=== PATIENT | male | born 1980 | race Caucasian/White ===

== ENCOUNTER 2018-04-10 13:25 | Inpatient (IN) | payer SELFPAY ==
[2018-04-10] MEDS ORDERED: HumaLOG 300 UNITS/3 ML VIAL SC PRN (15:08)
[2018-04-10] MEDS ORDERED: Dextrose 5% in Water 1,000 ML IV PRN (15:08)
[2018-04-10] MEDS ORDERED: Dextrose 50% Abboject 50 ML SYRINGE SLOW IVP PRN (15:08)
[2018-04-10] MEDS ORDERED: Ondansetron PF 4 MG/2 ML Vial IVP PRN (15:08)
[2018-04-10] MEDS ORDERED: Guaifenesin DM 100-10/5 ML UDCUP PO PRN (15:08)
[2018-04-10 15:51] LABS: Hemoglobin A1c 6.2 % (4.0-6.0)
[2018-04-10 16:05] LABS: Acetaminophen Less than 6.0 mcg/mL (10.0-30.0); Alcohol Less than 10 mg/dL (Less than 10); Salicylate Less than 8.0 mg/dL (15.0-30.0)
--- NOTE | 2018-04-10 16:40 | ULT ---
RIGHT UPPER QUADRANT ULTRASOUND 04/10/18 INDICATION: Cirrhosis. FINDINGS: Diffuse increased echogenicity throughout the hepatic parenchyma is present limiting acoustic penetra tion. There is moderate distention of the gallbladder without evidence of gallbladder wall thickening , There is mild increased intraluminal echogenicity indicating sludge/gravel-like cholelithiasis. A t race degree of decreased echogenicity about the gallbladder could relate to fatty sparring versus min imal pericholecystic edema. Common duct is not reliably visualized for comment. IMPRESSION: 1. Diffuse increased echogenicity of the liver which decreases acoustic penetration and limits e valuation. This could relate to hepatic steatosis and/or hepatocellular disease. Correlate with labor atory values. 2. Sludge/cholelithiasis of the gallbladder. Minimal decreased echogenicity about the periphery of the gallbladder may relate to fatty sparring versus trace pericholecystic edema. There is no evide nce of abnormal gallbladder wall thickening. Recommend clinical correlation to exclude evidence of de veloping cholecystitis. 3. Nonvisualization of the common duct. POS: RAMIRO
[2018-04-10 16:58] LABS: Bilirubin Negative (Negative); Blood, Urine Negative (Negative); Clarity CLOUDY (Clear); Glucose, Urine (Dipstick) Negative (Negative); Leukocyte Negative (Negative); Nitrite Negative (Negative); Protein, Urine (Dipstick) Trace mg/dL (Neg-Trace); Urobilinogen 0.2 mg/dL (0.2-1.0); pH, Urine 5.5 (5.0-9.0)
[2018-04-10 17:00] LABS: Specific Gravity, Urine Greater than 1.060 (1.002-1.036)
[2018-04-10] MEDS: Sodium Chloride 0.9% 1,000 ML IV SCH (17:09)
[2018-04-10] MEDS: Morphine 2 MG/ML SYRINGE SLOW IVP PRN ×2 (17:21→20:18)
[2018-04-10 18:10] LABS: Amphetamine Not Detected (NotDetected); Barbiturates Screen Not Detected (NotDetected); Benzodiazepine Screen Not Detected (NotDetected); Cocaine Metabolite Screen Not Detected (NotDetected); Medtox Control Line Valid? VALID (VALID); Medtox Reader # READER 1; Methadone Not Detected (NotDetected); Methamphetamine Not Detected (NotDetected); Opiate Screen Detected (NotDetected); Oxycodone Screen Not Detected (NotDetected); Phencyclidine (PCP) Not Detected (NotDetected); THC/Cannabinoid Screen Not Detected (NotDetected); Tricyclic Screen Not Detected (NotDetected)
[2018-04-10] MEDS: metroNIDAZOLE 500 MG in Premix Bag 1 BAG IVPB SCH (19:21)
[2018-04-10 19:39] VITALS: BMI 41.8
[2018-04-10] MEDS: Famotidine 20 MG TAB PO SCH (20:18)
[2018-04-11] MEDS: Morphine 2 MG/ML SYRINGE SLOW IVP PRN (00:19)
[2018-04-11] MEDS: metroNIDAZOLE 500 MG in Premix Bag 1 BAG IVPB SCH ×3 (00:20→17:51)
--- NOTE | 2018-04-11 02:32 | CON ---
DATE OF CONSULTATION: 04/10/2018 REASON FOR CONSULTATION: Abdominal pain. HISTORY OF PRESENT ILLNESS: Mr. Hernandez is a 37-year-old man, who is without any previous medical issue, transferred from [facility] to this facility for abdominal pain. His symptoms started 5 days ago when he developed frequent watery loose diarrhea without any blood or mucus. This lasted for approximately a day and a half and resolved. However, two days ago, he developed severe mid periumbilical abdominal pain without radiation. Pain came in waves, rated at 10/10, which doubled him over. The pain has waxed and waned. Concurrently, his umbilical hernia that has been present for the last 3 years became much bigger and very red. He did not have any nausea or vomiting. Thinking that there was constipation, he took a dose of MiraLAX, which did result in a loose bowel. However, the pain persisted. The umbilical hernia remained very large and red until this morning when there is a reduction in size, but not to the baseline. He reports having had umbilical hernia for the last 3 years, but it has become much big over the last 6 months. The patient attributed the umbilical hernia with the heavy lifting. He never did have any blunt trauma, injury, or any surgery to his abdomen. Currently, other than the pain, he feels fine. He does not have any nausea or vomiting. He no longer has any diarrhea. PAST MEDICAL HISTORY: Essentially healthy without any previous medical illness or surgery. ALLERGIES: NONE. MEDICATIONS: No prescription medications at home. SOCIAL HISTORY: The patient is single. He works in construction. He smokes half a pack a day. Infrequent alcohol consumption. No illicit drug use. FAMILY HISTORY: Negative for any known GI problem, liver disease, or GI malignancy. REVIEW OF SYSTEMS: A 10-point review of systems did not show any other pertinent positives or negatives. PHYSICAL EXAMINATION: VITAL SIGNS: Temperature 98.6, blood pressure 116/80, and pulse of 100. GENERAL: He is alert, conversant, sitting up, in no distress. HEENT: Shows anicteric sclerae. Oropharynx clear. NECK: Supple. CV: Shows normal S1 and S2. Regular rate and rhythm. Slight tachycardia. CHEST: Shows normal breath sounds. ABDOMEN: Very protuberant. There is an 8 cm umbilical hernia that is not completely reducible. There is no surrounding erythema. He does have active bowel sounds. EXTREMITIES: Show no edema. LABORATORY DATA: Sodium 139, potassium 4.3, chloride 103, CO2 of 25, creatinine 0.8, BUN of 10. Bilirubin 0.5, alkaline phosphatase 77, AST 27, ALT 45, lipase of 15. WBC 7.8, hemoglobin 16.2, and platelet count of 257. CT in [place] of the abdomen and pelvis showed by report mural thickening involving loops of small bowel without any evidence of an obstruction. There is a fat umbilical hernia and a small amount of free fluid. There is fatty infiltration of the liver. Otherwise, no other inflammatory changes or significant finding. Right upper quadrant ultrasound performed here showed fatty liver, distended gallbladder with sludge without any mural thickening. ASSESSMENT: The patient with resolved diarrhea, now presents with 2-day history of persistent periumbilical pain, associated with much enlarged umbilical hernia by history. Hernia is now smaller per the patient. A CT scan showed mural thickening of several small loops of bowel. I suspect he may have had partial incarceration of small bowel two days ago that has resolved by the time of CT in [place] this morning. I doubt that he has any inflammatory bowel disease such as Crohn's enteritis. Clinical symptoms are not compatible with any infectious enterocolitis. He does not have fever or leukocytosis. At this point, there is no evidence of ischemic bowel. I do not have the actual CT scan from [place] for further review. RECOMMENDATIONS: 1. Surgery consult. 2. Continue with empiric Cipro/metronidazole. 3. No other diagnostic test from GI standpoint. 4. We will follow. Job ID: [id number]
[2018-04-11] MEDS: Acetaminophen 325 MG TAB PO PRN ×2 (03:36→20:43)
--- NOTE | 2018-04-11 03:38 | CON ---
DATE OF CONSULTATION: 04/10/2018 HISTORY OF PRESENT ILLNESS: A 37-year-old morbidly obese man was evaluated in [place] [facility]. The patient presented complaining of severe low abdominal pain, which was described as crampy since 3 days ago. The pain was preceded by multiple loose bowel movements, which continued up until yesterday. The patient denies any fevers or chills. He reports runny nose and cough over the last 2 weeks. He denies any hematochezia or melena. PAST MEDICAL HISTORY: Significant for umbilical hernia, which has been present over the last 3 to 4 years and has not changed in size or appearance. Other pertinent medical history includes morbid obesity and asthma. PAST SURGICAL HISTORY: The patient denies any previous surgeries. SOCIAL HISTORY: The patient reports drinking about 5 beers every other day. He also smokes half a pack of cigarette per day and trying to quit smoking. He does have approximately a 20-pack cigarette smoking history. He denies any illicit drug abuse. FAMILY HISTORY: Significant for chronic alcoholism in his late father. He denies any family history of inflammatory bowel disease, cancer, or coronary artery disease. MEDICATIONS: Prehospitalization medication, none. ALLERGIES: THE PATIENT DENIES ANY KNOWN DRUG ALLERGIES. REVIEW OF SYSTEMS: A 10-point review of systems is essentially unremarkable except for as stated in past medical history and chief complaint. PHYSICAL EXAMINATION: GENERAL: This reveals a 37-year-old morbidly obese man, who is otherwise coherent, interactive, and appears stated age. The patient is alert and oriented x3, appears to be in no acute distress at the time of my evaluation. He now rates his pain 2 to 3 out of 10. VITAL SIGNS: Include blood pressure 128/101, pulse is 96, respiratory rate is 18, temperature 97.7 degrees Farenheit, and oxygen saturation 94% on room air. HEENT: Appears normocephalic and atraumatic. Pupils are equally round and reactive to light and accommodation. Extraocular muscles are intact bilaterally. He has no scleral icterus present. Oral mucosa is pink and moist. No lesions are noted. NECK: Supple. No palpable lymphadenopathy or thyromegaly present. HEART: Reveals regular rate and rhythm. No murmurs or gallops auscultated. LUNGS: Clear to auscultation bilaterally. Breathing regular and unlabored. ABDOMEN: Soft and morbidly obese. He has [id number] tenderness to palpation with no gross rebound tenderness present. He has a large umbilical hernia defect with a nonreducible sac. Bowel sounds in all four quadrants appear normoactive. Liver and spleen not palpable below costal margin. EXTREMITIES: Reveal 2+ radial and pedal pulses bilaterally. Ankle edema is present. NEUROLOGIC: Reveals no focal deficits present. IMAGING STUDIES: I have personally reviewed CT scan of the abdomen and pelvis obtained in [place], which reveals multiple loops of thick-walled distal small bowel with a small amount of free fluid. There is significant amount of omental fat. There is a large umbilical hernia, which contains fat, but no bowel. There is fatty infiltration of the liver. There is no pneumoperitoneum or pneumatosis intestinalis. I have also reviewed the abdominal ultrasound, which is pertinent for intraluminal biliary sludge, no gallstones. There is no gallbladder wall thickening or pericholecystic fluid present. IMPRESSION: 1. Resolving abdominal pain, likely secondary to acute viral enteritis. 2. Chronic umbilical hernia with incarcerated fat. The umbilical hernia itself is asymptomatic. 3. Biliary sludge. 4. Morbid obesity. RECOMMENDATIONS: Continue with clear liquid diet and advance diet as tolerated, especially if abdominal pain is resolving. There is no acute surgical indication for this patient at this time. An elective umbilical herniorrhaphy could be pursued once the patient has been able to loose at least 50 to 75 pounds. This could be arranged through [facility]. The above findings and plan have been discussed with the patient, who indicates understanding of the information given. We answered his questions. Thank you again, Dr. Doyle, for allowing me the opportunity to participate in the care of this patient. Job ID: [id number]
[2018-04-11 04:51] LABS: #Eosinphils 0.1 thou/uL (0.0-0.7); #Lymphocytes 1.1 thou/uL (1.20-3.40); #Monocytes 0.6 thou/uL (0.11-0.59); #Neutrophils 5.1 thou/uL (1.40-6.50); %Basophils 0.5 % (0.0-1.0); %Lymphocytes 16.3 % (21.0-51.0); %Monocytes 8.1 % (0.0-10.0); %Neutrophils 73.1 % (42.0-75.0); Hemoglobin 14.7 g/dL (14.0-18.0); Mean Corpuscular HGB CONC 34.3 g/dL (32.0-36.0); Mean Corpuscular Hemoglobin 32.3 pg (27.0-31.0); Mean Corpuscular Volume 94.2 fL (78.0-98.0); Mean Platelet Volume 7.5 fL (7.4-10.4); Platelet Count 269 thou/uL (130-400); RBC Distribution Width 12.3 % (11.5-14.5); Red Blood Cell (RBC) Count 4.56 mill/uL (4.70-6.10)
[2018-04-11 04:59] LABS: Anion Gap 11 mmol/L (10-20); BUN (Urea Nitrogen) 9 mg/dL (8.9-20.6); Calc. Creatinine Clearance 217 mL/min (70-130); Calcium 8.3 mg/dL (7.8-10.44); Carbon Dioxide 24 mmol/L (22-29); Cardiac Risk 7.4 (Less than 4.5); Chloride 106 mmol/L (98-107); Cholesterol 147 mg/dl (< 200 Desired); Estimated GFR-MDRD Greater than 90; Glucose 149 mg/dL (70-105); HDL Cholesterol 20 mg/dL (>60 Neg Risk); LDL Cholesterol, Calculated 61 mg/dL; Sodium 137 mmol/L (136-145); Triglycerides 329 mg/dL (Less than 150)
[2018-04-11] MEDS: Sodium Chloride 0.9% 1,000 ML IV SCH (05:26)
[2018-04-11] MEDS ORDERED: CEFAZOLIN 2 GM/50 ML BAG IVPB SCH (09:00)
[2018-04-11] MEDS: Enoxaparin Sodium 40 MG/0.4 ML SYRINGE SC SCH (09:03)
[2018-04-11] MEDS: Famotidine 20 MG TAB PO SCH ×2 (09:03→20:43)
--- NOTE | 2018-04-11 10:56 | PRG ---
DATE OF SERVICE: 04/11/2018 SUBJECTIVE: This morning on rounds, I saw the patient, he reports some discomfort in his umbilical hernia. No nausea or vomiting. He had a CT scan of the abdomen that showed that this hernia is fat containing, but no bowel loops, although there was some evidence of enteritis. OBJECTIVE: VITAL SIGNS: His temperature is 97.7, pulse is 95, and blood pressure 159/104. GENERAL: He is awake and alert, in no apparent distress. HEENT: Unremarkable. LUNGS: Clear. HEART: Regular rate and rhythm. ABDOMEN: Obese. Distended. He has about an 8 cm x 8 cm multilobular incarcerated umbilical hernia with overlying skin edema and erythema consistent with incarceration. It is not reducible and it is mildly tender. ASSESSMENT: Incarcerated umbilical hernia. PLAN: Repair today. Hold Lovebubbax. I have discussed the procedure with him as well as the risk of bleeding, infection, high risk of recurrence, possible need to open his abdomen further to inspect bowel. He understands and gives informed consent. Job ID: [id number]
--- NOTE | 2018-04-11 11:13 | PDOC.PN ---
- Subjective Encounter Start Date: 04/11/18 Encounter Start Time: 10:00 Subjective: abd pain slightly better but its still there -: no nausea -: had 2 semisolid bm - Objective Resuscitation Status - Order Detail: 04/10/18 15:03 Resuscitation Status Routine Resuscitation Status: FULL: Full Resuscitation MAR Reviewed: Yes Vital Signs & Weight: Vital Signs (12 hours) Temp Pulse Resp BP Pulse Ox 04/11/18 08:00 94 L 04/11/18 07:05 97.7 F 95 22 H 133/90 94 L 04/11/18 04:00 98.1 F 94 18 140/98 H 93 L 04/11/18 00:00 97.6 F 95 20 143/90 H 94 L Weight Weight 251 lb 4.8 oz I&O: 04/10/18 04/11/18 04/12/18 06:59 06:59 06:59 Intake Total 1053 Balance 1053 Result Diagrams: 04/11/18 03:52 04/11/18 03:52 Additional Labs: Accuchecks 04/11/18 04/10/18 05:36 21:18 POC Glucose 151 H 173 H Phys Exam - Physical Examination HEENT: PERRLA, moist MMs Neck: no JVD, supple Respiratory: no wheezing, no rales Cardiovascular: RRR, no significant murmur Gastrointestinal: soft, positive bowel sounds has erythema over u.hernia area, tenderness+ Musculoskeletal: pulses present, edema present Neurological: non-focal, moves all 4 limbs Psychiatric: normal affect, A&O x 3 Dx/Plan (1) Enteritis Code(s): K52.9 - NONINFECTIVE GASTROENTERITIS AND COLITIS, UNSPECIFIED Status : Suspected (2) Umbilical hernia, incarcerated Code(s): K42.0 - UMBILICAL HERNIA WITH OBSTRUCTION, WITHOUT GANGRENE Status: Suspected (3) Hypertriglyceridemia Code(s): E78.1 - PURE HYPERGLYCERIDEMIA Status: Acute (4) Obesity Code(s): E66.9 - OBESITY, UNSPECIFIED Status: Chronic Qualifiers: Obesity classification: adult class 3 (BMI >= 40) Body mass index: BMI 40.0 -44.9 (5) Fatty liver Code(s): K76.0 - FATTY (CHANGE OF) LIVER, NOT ELSEWHERE CLASSIFIED Status: Acute (6) H/O extrinsic asthma Code(s): Z87.09 - PERSONAL HISTORY OF OTHER DISEASES OF THE RESPIRATORY SYSTEM Status: Chronic (7) Tobacco abuse Code(s): Z72.0 - TOBACCO USE Status: Chronic - Plan is npo for surgery today for incarcerated u.hernia -: will add tricor after procedure -: is prediabetic with HbA1c of 6.2 -: counselled regarding healthy eating/exercises to lose weight -: on cipro, flagyl, iv fluids, morphine prn * . Review of Systems - Medications/Allergies Allergies/Adverse Reactions: Allergies Allergy/AdvReac Type Severity Reaction Status Date / Time Sulfa (Sulfonamide Allergy Verified 04/10/18 16:05 Antibiotics) Medications: Current Medications Acetaminophen (Tylenol) 650 mg PO Q4H PRN PRN Reason: Headache/Fever/Mild Pain (1-3) Last Admin: 04/11/18 03:36 Dose: 650 mg Cefazolin Sodium/Dextrose (Ancef 2 Gm/50 Ml) 2 gm IVPB ONCALL-OR GONZALO Stop: 04/11/18 17:00 Dextrose/Water (Dextrose 50%) 25 gm SLOW IVP PRN PRN PRN Reason: Hypoglycemia Enoxaparin Sodium (Lovenox) 40 mg SC 0900 [facility] Last Admin: 04/11/18 09:03 Dose: Not Given Famotidine (Pepcid) 20 mg PO BID [facility] Last Admin: 04/11/18 09:03 Dose: Not Given Glucagon (Glucagon) 1 mg IM PRN PRN PRN Reason: Hypoglycemia Guaifenesin/Dextromethorphan (Robitussin Dm) 15 ml PO Q4H PRN PRN Reason: Cough Ciprofloxacin/Dextrose 400 mg/ (Device) 200 mls @ 200 mls/hr IVPB 0500,1700 [facility] Last Admin: 04/11/18 05:26 Dose: 200 mls Dextrose/Water (D5w) 1,000 mls @ 0 mls/hr IV .Q0M PRN PRN Reason: Hypoglycemia Metronidazole 500 mg/ Device 100 mls @ 100 mls/hr IVPB 0200,1000,1800 [facility] Last Admin: 04/11/18 09:47 Dose: 100 mls Sodium Chloride (Normal Saline 0.9%) 1,000 mls @ 70 mls/hr IV .[id number] [facility] Stop: 04/11/18 19:49 Last Admin: 04/11/18 05:26 Dose: Not Given Insulin Human Lispro (Humalog) 0 units SC .MILD SLIDING SCALE PRN PRN Reason: Mild Correctional Scale Morphine Sulfate (Morphine) 2 mg SLOW IVP Q4H PRN PRN Reason: Chest Pain/BP Elevations Last Admin: 04/11/18 00:19 Dose: 2 mg Ondansetron HCl (Zofran) 4 mg IVP Q6H PRN PRN Reason: Nausea/Vomiting
[2018-04-11] MEDS ORDERED: Morphine 2 MG/ML SYRINGE ONE (11:20)
[2018-04-11] MEDS ORDERED: PROPOFOL 200 MG/20 ML VIAL ONE (11:34)
[2018-04-11] MEDS ORDERED: Glycopyrrolate 0.2 MG/ML 5 ML SYRINGE ONE (11:34)
[2018-04-11] MEDS ORDERED: Succinylcholine Chloride 20 MG/ML 10 ml SYRINGE FS ONE (11:34)
[2018-04-11] MEDS ORDERED: Ondansetron PF 4 MG/2 ML Vial ONE (11:34)
[2018-04-11] MEDS ORDERED: Lidocaine 1% PF 5 ML VIAL ONE (11:34)
--- NOTE | 2018-04-11 11:52 | PRG ---
DATE OF SERVICE: 04/11/2018 SUBJECTIVE: The patient reports improved abdominal pain though it has continued. Denies fevers or chills and has no other complaints at this time. No shortness of breath. No chest pain. Continued but improved abdominal pain. OBJECTIVE: VITAL SIGNS: Blood pressure 133/90, pulse 95, respirations 22, O2 saturations 94% on room air, and temperature 97.7. GENERAL: Alert and oriented. No acute distress. HEENT: EOMI. Moist mucosal membranes. NECK: Trachea midline. Soft. CARDIOVASCULAR: Regular rate and rhythm. No murmurs. PULMONARY: Clear to auscultation bilaterally. Equal chest rise. ABDOMEN: Umbilical herniation with erythema on overlying skin. Nonreducible sac. Nontender to palpation. EXTREMITIES: Equal pulses bilaterally. NEUROLOGIC: No focal deficits. LABORATORY DATA: White blood cell count 7, hemoglobin 14.7, hematocrit 43, and platelet 269. Sodium 137, potassium 4, BUN 9, creatinine 0.76, and glucose 149. IMPRESSION: 1. Resolving abdominal pain likely secondary to acute viral enteritis. 2. Chronic umbilical hernia with incarcerated fat. 3. Biliary sludge. 4. Morbid obesity. RECOMMENDATIONS: Gastroenterology has been consulted on this patient. We will follow up with their recommendations for enteritis. For umbilical hernia, we will keep the patient n.p.o. today for possibility of doing an umbilical herniation repair for concern of necrosing fat and overlying skin above herniation. This patient was seen and evaluated by Dr. Warren on morning rounds. The plan of care was discussed with the patient, who verbalized understanding and was in agreement. Job ID: [id number]
--- NOTE | 2018-04-11 12:03 | HP ---
REASON FOR ADMISSION: Acute enteritis, possibly ischemic enteritis. HISTORY OF PRESENT ILLNESS: The patient gives history of having diarrhea, two episodes on Sunday night. The patient did not have any bowel movements on Sunday or Sunday, but then his abdominal pain was slowly getting worse. The pain was more in the lower quadrants, both. This got worse this morning with colicky 10/10 in intensity pain. The patient had a semisolid stool this morning. No fever. He gives history of his daughter having had fever, nausea and vomiting. She got better and went back to school from this morning. The patient thought he had viral fever until yesterday. He has not had any further diarrhea after the Sunday episode. The patient went to [facility] from where he was transferred here. PAST MEDICAL AND SURGICAL HISTORY: History of umbilical hernia from last 3 years which has been progressively growing bigger, history of asthma which is mild, intermittent. No prior surgical history. CURRENT MEDICATIONS: None. ALLERGIES: ALLERGIC TO SULFA. PERSONAL HISTORY: Drinks alcohol on occasion, smokes half pack a day. Does not abuse drugs. FAMILY HISTORY: Mother of overdose at the age of 57 years. Father at the age of 71 years, he has had a history of end stage renal disease and diabetes. CODE STATUS: Full. This was discussed with patient at bedside. REVIEW OF SYSTEMS: REVIEW OF SYSTEMS: The following complete review of systems was negative, unless otherwise mentioned in the HPI or below: Constitutional: Weight loss or gain, ability to conduct usual activities. Skin: Rash, itching. Eyes: Double vision, pain. ENT/Mouth: Nose bleeding, neck stiffness, pain, tenderness. Cardiovascular: Palpitations, dyspnea on exertion, orthopnea. Respiratory: Shortness of breath, wheezing, cough, hemoptysis,fever or night sweats. Gastrointestinal: Poor appetite, abdominal pain, heartburn, nausea, vomiting, constipation, or diarrhea. Genitourinary: Urgency, frequency, dysuria, nocturia. Musculoskeletal: Pain, swelling. Neurologic/Psychiatric: Anxiety, depression. Allergy/Immunologic: Skin rash, bleeding tendency. PHYSICAL EXAMINATION: GENERAL: The patient is a 37-year-old male who is currently not in any acute distress. VITAL SIGNS: Blood pressure 128/100, pulse 96 per minute, respiratory rate 18 per minute, temperature 97.8 degrees Fahrenheit, saturating 96% on room air. NECK: Supple. No elevated JVD. EYES: Extraocular muscles intact. Pupils reacting to light. Oral cavity, mucous membranes are moist. No exudates. CARDIOVASCULAR: S1, S2 heard, regular rhythm. RESPIRATORY: Air entry 1+ bilateral, scattered rhonchi plus no wheezes. ABDOMEN: Soft. The patient has a big umbilical hernia, has tenderness in the lower quadrants. No rigidity or guarding. EXTREMITIES: No peripheral edema or calf tenderness. VASCULAR: Peripheral pulses 2+ bilateral. No ischemic ulcerations or gangrenes. CENTRAL NERVOUS SYSTEM: No gross focal deficits noted. The patient is alert, awake, oriented well. PSYCHIATRIC: The patient's mood is euthymic. No hallucinations or delusions. LABORATORY DATA: Please note all his labs were done in [place] [facility], had a white count of 7, H and H 16 and 46, platelet count 257, MCV is 90. Electrolytes are stable, BUN 10, creatinine 0.8, serum glucose was 160. Alkaline phosphatase is 77, AST 27, ALT 45, albumin 4.1, amylase 31, lipase 15, lactic acid 1.5. CT of the abdomen done showed mural thickening with loops of small bowel suggestive of enteritis with fat containing umbilical hernia. Fatty liver was seen. CLINICAL IMPRESSION AND PLAN: The patient will be admitted to medical floor for acute enteritis, possible ischemic enteritis. We will obtain a urine drug screen. The patient denies substance abuse. He will be on Cipro, Flagyl and normal saline at 70 mL per hour. We will obtain Gastroenterology consultation with Dr. Mcneil. Stool cultures will be obtained if he can provide one. He will be on full liquid diet for now. The patient will also be on morphine p.r.n. for pain. We will obtain a HbA1c level in view of serum sugars of 160 at [place]. We will continue to closely monitor him on medical floor. Job ID: [id number] [facility]
[2018-04-11] MEDS ORDERED: CEFAZOLIN 2 GM/50 ML BAG ONE (12:39)
[2018-04-11] MEDS ORDERED: Bupivacaine HCl 0.5%/Epinephrine 1:200,000/PF 30 ml Vial ONE (13:50)
[2018-04-11] MEDS ORDERED: Fentanyl 100 MCG/2 ML VIAL ONE ×3 (13:55→16:32)
[2018-04-11] MEDS ORDERED: Dextrose 50% Abboject 50 ML SYRINGE SLOW IVP PRN (15:38)
[2018-04-11] MEDS ORDERED: hydrALAZINE 20 MG/ML VIAL SLOW IVP PRN (15:38)
[2018-04-11] MEDS ORDERED: Mag-Al 1200 mg/1200 mg/30 ML UDCUP PO PRN (15:38)
[2018-04-11] MEDS ORDERED: Ondansetron PF 4 MG/2 ML Vial IVP PRN (15:38)
[2018-04-11] MEDS ORDERED: Promethazine HCl 25 MG/ML VIAL IM PRN ×2 (15:38→15:46)
[2018-04-11] MEDS ORDERED: HYDROcodone/Acetaminophen 10/325 mg Tablet PO PRN ×2 (15:38)
[2018-04-11] MEDS ORDERED: Dextrose 5% in Water 1,000 ML IV PRN (15:38)
[2018-04-11] MEDS ORDERED: Calcium Carbonate 500 MG ChewTAB PO PRN (15:38)
[2018-04-11] MEDS ORDERED: Ondansetron HCl/PF 4 MG/2 ML Vial IVP PRN (15:46)
[2018-04-11] MEDS ORDERED: Morphine 2 MG/ML SYRINGE SLOW IVP PRN ×2 (15:46)
[2018-04-11] MEDS ORDERED: Promethazine HCl 25 MG/ML VIAL SLOW IVP PRN (15:46)
[2018-04-11] MEDS: Ketorolac Tromethamine 30 MG/ML VIAL IVP SCH ×2 (17:52→23:54)
[2018-04-11] MEDS: Famotidine/PF 20 mg/2ml Vial SLOW IVP SCH (20:36)
[2018-04-11] MEDS: Docusate 100 MG CAP PO SCH (20:36)
--- NOTE | 2018-04-11 23:12 | OP ---
DATE OF PROCEDURE: 04/11/2018 PREOPERATIVE DIAGNOSIS: Strangulated umbilical hernia. PROCEDURE PERFORMED: Open ventral hernia repair with mesh, excision of 8 cm incarcerated omentum. INDICATIONS FOR PROCEDURE: This is a 37-year-old male, who presented with abdominal pain, a CT scan showing ventral hernia that contained fatty tissue. He developed increasing skin edema, erythema and tenderness consistent with compromised tissue. FINDINGS: He had an obviously incarcerated multilobular umbilical hernia that contained about 8 cm of incarcerated omentum. The actual defect was only 2.5 cm. A 15 cm piece of mesh was used, circular mesh. DESCRIPTION OF PROCEDURE: After informed consent was obtained, the patient was taken to the operating room, given general endotracheal anesthesia, placed in supine position, and abdomen was prepped and draped in usual fashion. A midline incision just lateral to the left of this wound, kind of a curvilinear lateral incision, was performed. Subcu divided sharply, very hemorrhagic. Then, I was able to separate skin from hernia sac and just carefully continued to separate the skin from the hernia sac circumferentially. There were some branch pockets that were found. These were taken down. Eventually went all the way down to the fascia. The hernia sac was then from the fascia circumferentially and opened. The omentum was divided between clamps and tied with 2-0 Vicryl ties. Hemostasis assured and the omentum was resected, sent to Pathology for further analysis. The stump was then reduced. A 15 cm round mesh was it was inserted intraabdominally. Then, it was tacked through the anterior abdominal wall circumferentially. Then, it was sutured to the abdominal wall with interrupted 0 Ethibond sutures. A 10-Estonian drain was placed and brought out through a separate stab wound. After the wound was thoroughly irrigated, hemostasis was assured. The subcu was approximated with interrupted 2-0 Vicryl; the skin was closed with skin ramu. The patient tolerated the procedure well and transferred to Recovery in fair condition. Job ID: [id number]
[2018-04-12] MEDS: metroNIDAZOLE 500 MG in Premix Bag 1 BAG IVPB SCH ×3 (01:26→17:14)
[2018-04-12 05:05] LABS: #Eosinphils 0.2 thou/uL (0.0-0.7); #Lymphocytes 1.3 thou/uL (1.20-3.40); #Monocytes 0.6 thou/uL (0.11-0.59); #Neutrophils 4.4 thou/uL (1.40-6.50); %Basophils 0.6 % (0.0-1.0); %Eosinophils 2.4 % (0.0-10.0); %Lymphocytes 19.7 % (21.0-51.0); %Monocytes 8.7 % (0.0-10.0); %Neutrophils 68.6 % (42.0-75.0); Hemoglobin 12.9 g/dL (14.0-18.0); Mean Corpuscular HGB CONC 34.4 g/dL (32.0-36.0); Mean Corpuscular Volume 95.7 fL (78.0-98.0); Mean Platelet Volume 7.6 fL (7.4-10.4); Platelet Count 240 thou/uL (130-400); RBC Distribution Width 12.3 % (11.5-14.5); Red Blood Cell (RBC) Count 3.92 mill/uL (4.70-6.10); White Blood Cell (WBC) Count 6.4 thou/uL (4.8-10.8)
[2018-04-12] MEDS: Ketorolac Tromethamine 30 MG/ML VIAL IVP SCH ×3 (05:11→17:13)
[2018-04-12 05:23] LABS: ALT (SGPT) 26 U/L (8-55); AST (SGOT) 18 U/L (5-34); Albumin 3.2 g/dL (3.5-5.0); Alkaline Phosphatase 60 U/L (40-150); Anion Gap 10 mmol/L (10-20); BUN (Urea Nitrogen) 8 mg/dL (8.9-20.6); Bilirubin, Total 0.3 mg/dL (0.2-1.2); Calc. Creatinine Clearance 208 mL/min (70-130); Calcium 8.1 mg/dL (7.8-10.44); Carbon Dioxide 27 mmol/L (22-29); Chloride 104 mmol/L (98-107); Estimated GFR-MDRD Greater than 90; Globulin 2.5 g/dL (2.4-3.5); Glucose 161 mg/dL (70-105); Potassium 3.5 mmol/L (3.5-5.1); Protein, Total 5.7 g/dL (6.0-8.3); Sodium 137 mmol/L (136-145)
--- NOTE | 2018-04-12 08:39 | PRG ---
DATE OF SERVICE: 04/12/2018 SUBJECTIVE: The patient feels much better since the surgery. He denies having any nausea or vomiting. No bowel movement over the last 24 hours. Abdominal pain is much better since the hernia surgery. OBJECTIVE: VITAL SIGNS: Temperature is 98, blood pressure 98/60, and pulse of 87. GENERAL: He is alert, conversant, in no distress. HEENT: Shows anicteric sclerae. CV: Shows normal S1 and S2. Regular rate and rhythm. CHEST: Shows breath sounds. ABDOMEN: Very protuberant. There are hyperactive bowel sounds. Abdomen is firm. There is large dressing. JASMYNE drain with serosanguinous fluid. EXTREMITIES: Exam shows no edema. LABORATORY DATA: WBC 6.4, hemoglobin 12.9, and platelet count of 240. Electrolytes within normal range. Creatinine 0.79. LFT is normal. Stool study, C. diff negative. Stool culture negative. Campylobacter antigen and E. coli toxin negative. ASSESSMENT: 1. Status post umbilical hernia repair, clinically doing well. 2. Preoperative abdominal pain associated with CT finding, was related to incarcerated omentum with reactive change in small bowel on CT. No evidence of ischemic bowel. 3. Overall, clinically doing well from the GI standpoint without any other active issue. RECOMMENDATIONS: 1. No new GI recommendation. 2. Dr. Junior is on-call for GI Service this weekend, please call if needed. Job ID: [id number]
[2018-04-12] MEDS: Famotidine 20 MG TAB PO SCH ×2 (09:14→19:59)
[2018-04-12] MEDS: Enoxaparin Sodium 40 MG/0.4 ML SYRINGE SC SCH (09:14)
[2018-04-12] MEDS: Docusate 100 MG CAP PO SCH ×2 (09:15→19:59)
[2018-04-12] MEDS: Famotidine/PF 20 mg/2ml Vial SLOW IVP SCH (09:15)
--- NOTE | 2018-04-12 12:23 | PDOC.PN ---
- Subjective Encounter Start Date: 04/12/18 Encounter Start Time: 09:30 Subjective: feels better, no abd pain -: is amb in room -: is passing flatus, no bm yet - Objective Resuscitation Status - Order Detail: 04/10/18 15:03 Resuscitation Status Routine Resuscitation Status: FULL: Full Resuscitation MAR Reviewed: Yes Vital Signs & Weight: Vital Signs (12 hours) Temp Pulse Resp BP Pulse Ox 04/12/18 07:22 98.0 F 80 18 119/84 92 L 04/12/18 04:00 98 F 87 21 H 98/60 93 L 04/12/18 03:55 96 Weight Weight 251 lb 4.8 oz I&O: 04/11/18 04/12/18 04/13/18 06:59 06:59 06:59 Intake Total 1053 3313 Output Total 1415 Balance 1053 1898 Result Diagrams: 04/12/18 03:58 04/12/18 03:58 Additional Labs: Accuchecks 04/12/18 04/12/18 04/11/18 11:11 04:35 20:01 POC Glucose 200 H 147 H 213 H 04/11/18 17:31 POC Glucose 134 H Phys Exam - Physical Examination HEENT: PERRLA, moist MMs Neck: no JVD, supple Respiratory: no wheezing, no rales Cardiovascular: RRR, no significant murmur Gastrointestinal: soft, no distention, positive bowel sounds pinrose drain+ Musculoskeletal: no edema, pulses present Neurological: non-focal, moves all 4 limbs Psychiatric: normal affect, A&O x 3 Dx/Plan (1) Umbilical hernia, incarcerated Code(s): K42.0 - UMBILICAL HERNIA WITH OBSTRUCTION, WITHOUT GANGRENE Status: Suspected (2) Hypertriglyceridemia Code(s): E78.1 - PURE HYPERGLYCERIDEMIA Status: Acute (3) Obesity Code(s): E66.9 - OBESITY, UNSPECIFIED Status: Chronic Qualifiers: Obesity classification: adult class 3 (BMI >= 40) Body mass index: BMI 40.0 -44.9 (4) Fatty liver Code(s): K76.0 - FATTY (CHANGE OF) LIVER, NOT ELSEWHERE CLASSIFIED Status: Acute (5) H/O extrinsic asthma Code(s): Z87.09 - PERSONAL HISTORY OF OTHER DISEASES OF THE RESPIRATORY SYSTEM Status: Chronic (6) Tobacco abuse Code(s): Z72.0 - TOBACCO USE Status: Chronic - Plan is on clear liq diet -: to amb as tolerated -: i.spirometry -: will start tricor, crestor and metformin bid -: hemostable * . Review of Systems - Medications/Allergies Allergies/Adverse Reactions: Allergies Allergy/AdvReac Type Severity Reaction Status Date / Time Sulfa (Sulfonamide Allergy Verified 04/10/18 16:05 Antibiotics) Medications: Current Medications Acetaminophen (Tylenol) 650 mg PO Q4H PRN PRN Reason: Headache/Fever/Mild Pain (1-3) Last Admin: 04/11/18 20:43 Dose: 650 mg Hydrocodone Bitart/Acetaminophen ([place] 10/325) 1 tab PO Q6H PRN PRN Reason: Moderate Pain (4-6) Hydrocodone Bitart/Acetaminophen ([place] 10/325) 2 tab PO Q6H PRN PRN Reason: Severe Pain (7-10) Al Hydroxide/Mg Hydroxide (Maalox) 15 ml PO Q6H PRN PRN Reason: Dyspepsia Albuterol/Ipratropium (Duoneb) 3 ml NEB Q4H PRN PRN Reason: Wheezing Calcium Carbonate (Tums) 1,000 mg PO Q4H PRN PRN Reason: Dyspepsia Dextrose/Water (Dextrose 50%) 25 gm SLOW IVP PRN PRN PRN Reason: Hypoglycemia Docusate Sodium (Colace) 100 mg PO BID [facility] Last Admin: 04/12/18 09:15 Dose: Not Given Enoxaparin Sodium (Lovenox) 40 mg SC 0900 [facility] Last Admin: 04/12/18 09:14 Dose: 40 mg Famotidine (Pepcid) 20 mg PO Q12HR [facility] Last Admin: 04/12/18 09:14 Dose: 20 mg Famotidine (Pepcid) 20 mg SLOW IVP Q12HR [facility] Last Admin: 04/12/18 09:15 Dose: Not Given Glucagon (Glucagon) 1 mg IM PRN PRN PRN Reason: Hypoglycemia Guaifenesin/Dextromethorphan (Robitussin Dm) 15 ml PO Q4H PRN PRN Reason: Cough Hydralazine HCl (Apresoline) 10 mg SLOW IVP Q4H PRN PRN Reason: SBP > 170 or DBP > 100 Ciprofloxacin/Dextrose 400 mg/ (Device) 200 mls @ 200 mls/hr IVPB 0500,1700 [facility] Last Admin: 04/12/18 05:11 Dose: 200 mls Metronidazole 500 mg/ Device 100 mls @ 100 mls/hr IVPB 0200,1000,1800 [facility] Last Admin: 04/12/18 09:13 Dose: 100 mls Dextrose/Water (D5w) 1,000 mls @ 0 mls/hr IV .Q0M PRN PRN Reason: Hypoglycemia Insulin Human Lispro (Humalog) 0 units SC .MILD SLIDING SCALE PRN PRN Reason: Mild Correctional Scale Ketorolac Tromethamine (Toradol) 30 mg IVP Q6HR [facility] Stop: 04/16/18 18:01 Last Admin: 04/12/18 11:45 Dose: 30 mg Morphine Sulfate (Morphine) 2 mg SLOW IVP Q2H PRN PRN Reason: Breakthrough Pain MODERATE Morphine Sulfate (Morphine) 4 mg SLOW IVP Q2H PRN PRN Reason: Breakthrough Pain SEVERE Ondansetron HCl (Zofran) 4 mg IVP Q6H PRN PRN Reason: Nausea/Vomiting Promethazine HCl (Phenergan) 12.5 mg IM Q4H PRN PRN Reason: Nausea/Vomiting
[2018-04-12] MEDS: Acetaminophen 325 MG TAB PO PRN (14:15)
--- NOTE | 2018-04-12 14:32 | PRG ---
DATE OF SERVICE: 04/12/2018 SUBJECTIVE: The patient is status post repair of strangulated umbilical hernia. He feels great. He says the pain is minimal. He is tolerating a regular diet. Drain output has been about 200 of serosanguineous fluid. OBJECTIVE: VITAL SIGNS: Temperature 98, pulse 80, and blood pressure 119/84. His wound looks good. There is no cellulitis. The drain output is fairly thin, serous. LABORATORY DATA: His white count 6.4, hemoglobin and hematocrit 12 and 37, and platelets count 240. Electrolytes are fine. ASSESSMENT: Doing well. PLAN: He can be discharged whenever Medicine Teams appropriate. I would like to see him back on Sunday to take his drain out. The nurse is going to teach him how to measure the drain output and charge it b.i.d. Job ID: [id number]
[2018-04-12] MEDS: metFORMIN 500 MG TAB PO SCH (17:10)
--- NOTE | 2018-04-12 19:43 | RAD ---
SINGLE VIEW OF THE CHEST: Comparison: None. History: Cough. FINDINGS: Single view of the chest shows a normal sized cardiomediastinal silhouette. There is no evidence of c onsolidation, mass, or pleural effusion. The bones are unremarkable. IMPRESSION: No evidence of acute cardiopulmonary disease. POS: [facility]
[2018-04-12] MEDS ORDERED: Atorvastatin Calcium 20 MG TAB PO SCH (21:00)
[2018-04-13] MEDS: Ketorolac Tromethamine 30 MG/ML VIAL IVP SCH ×2 (01:06→06:12)
[2018-04-13] MEDS: metroNIDAZOLE 500 MG in Premix Bag 1 BAG IVPB SCH ×2 (01:07→11:28)
[2018-04-13 07:37] VITALS: BP 149/81; TEMP 97.2
[2018-04-13] MEDS: metFORMIN 500 MG TAB PO SCH (08:01)
[2018-04-13] MEDS: Docusate 100 MG CAP PO SCH (08:01)
[2018-04-13] MEDS: Enoxaparin Sodium 40 MG/0.4 ML SYRINGE SC SCH (08:01)
[2018-04-13] MEDS: Famotidine 20 MG TAB PO SCH (08:01)
[2018-04-13] MEDS ORDERED: Fenofibrate 48 MG TAB PO SCH (09:00)
--- NOTE | 2018-04-13 18:07 | DIS ---
DATE OF ADMISSION: 04/10/2018 DATE OF DISCHARGE: 04/13/2018 DISCHARGE DISPOSITION: Home. PRIMARY DISCHARGE DIAGNOSES: Incarcerated umbilical hernia, status post repair; hypertriglyceridemia; new onset diabetes mellitus type 2; fatty liver; morbid obesity; history of asthma; tobacco abuse. PROCEDURES DONE DURING HOSPITALIZATION: The patient had strangulated umbilical hernia with excision of 8 cm incarcerated omentum and repair of ventral hernia with mesh done by Dr. Warren on 04/11/2018. Hemoglobin and hematocrit 12 and 37, platelet count 240, triglycerides 329, total cholesterol 147, LDL 61, HbA1c 6.2. Stool studies including C. diff, Campylobacter antigen, Shiga toxin were all negative. Blood cultures x1 no growth. DISCHARGE MEDICATIONS: 1. Glucophage 500 mg p.o. twice daily. 2. Ultram p.r.n. for pain. 3. Tricor 48 mg p.o. daily. 4. Atorvastatin 20 mg p.o. at bedtime. 5. Albuterol inhaler q.6 hourly p.r.n. ALLERGIES: ALLERGIC TO SULFA. INPATIENT CONSULTS: 1. Dr. Warren for General Surgery. 2. Dr. Mcneil for Gastroenterology. BRIEF COURSE DURING HOSPITALIZATION: The patient initially went to [place] [facility] with complaints of severe abdominal pain. He also had some diarrhea on Sunday. Initial CT scan done at [place] showed mural thickening with loops of small bowel suggestive of enteritis with fat containing umbilical hernia. He also had fatty liver seen on the CAT scan. On clinical exam, the patient had tenderness along with erythema of the umbilical hernia sac. He was initially admitted for possible suspicion of enteritis and has had consultation with Dr. Mcneil. The patient has had consultation with Dr. Sawyer for General Surgery and Dr. Warren. As the patient's pain was unrelenting, he was taken to operating room for suspicion of incarceration of umbilical hernia. In fact, he had strangulated omentum in the ventral hernia and had this repaired with mesh. The patient's BMI is around 41.8 and he is being counseled with regarding losing weight and eating healthy. He was also diagnosed with new onset diabetes with fingerstick glucose going up to 200 during his stay here. He was placed on metformin 500 mg twice daily. The patient had elevated triglycerides with levels of 329. He was placed on Tricor and Lipitor. The patient has been advised to check fingerstick glucose twice daily for a period of 10 days and record it, to follow up with his primary care physician for changes in his medication. He is cleared for discharge by Dr. Warren. The patient has a [place] drain and will follow up with Dr. Warren for removal of the same. He is otherwise hemodynamically stable and will be shortly discharged to home. Please note, I have seen and examined the patient on the day of discharge. Job ID: [id number] MTDD
== END 2018-04-13 11:54 | disposition home or self-care (01) | DRG 354 ==
LOC: ERS 13:25 → ERHOLD 15:27 → T4-B 18:39
PROVIDERS: ADMIT Internal Medicine; ATTEND Internal Medicine
PROC: 0WUF0JZ Supplement Abdominal Wall with Synthetic Substitute, Open Approach (ICD-10-PCS; principal; 2018-04-11)
DX: K42.9 Umbilical hernia without obstruction or gangrene (principal); Z68.41 Body mass index [BMI] 40.0-44.9, adult; A08.4 Viral intestinal infection, unspecified; E66.01 Morbid (severe) obesity due to excess calories; F17.210 Nicotine dependence, cigarettes, uncomplicated; E78.1 Pure hyperglyceridemia; E11.9 Type 2 diabetes mellitus without complications; K76.0 Fatty (change of) liver, not elsewhere classified; J45.909 Unspecified asthma, uncomplicated
CPT/HCPCS: 36415; 36416; 71045; 76705; 80048; 80053; 80061; 80306; 80307; 81003; 83036; 85025; 87045; 87046; 87324; 87449; 87899; 88302; 94640; J0670; J0744; J1650; J1885; J2001; J2270; J2405; J2704; J3010; J3490; J7620; S0028

== ENCOUNTER 2018-05-22 22:23 | Inpatient (IN) | payer SELFPAY ==
[2018-05-22] MEDS ORDERED: Morphine 4 MG/ML VIAL ONE (23:18)
[2018-05-22] MEDS ORDERED: Acetaminophen 325 MG TAB PO PRN (23:24)
[2018-05-22] MEDS ORDERED: Zolpidem Tartrate 5 MG TAB PO PRN (23:24)
[2018-05-22] MEDS ORDERED: Ondansetron ODT 4 MG TAB PO PRN (23:24)
[2018-05-22] MEDS ORDERED: Acetaminophen 650 MG Suppository PR PRN (23:24)
[2018-05-22] MEDS ORDERED: Calcium Carbonate 500 MG ChewTAB PO PRN (23:24)
[2018-05-22] MEDS ORDERED: traMADol HCl 50 MG TAB PO PRN (23:28)
[2018-05-22] MEDS ORDERED: Dextrose 5% in Water 1,000 ML IV PRN (23:29)
[2018-05-22] MEDS ORDERED: HumaLOG 300 UNITS/3 ML VIAL SC PRN ×2 (23:29)
[2018-05-22] MEDS ORDERED: Dextrose 50% Abboject 50 ML SYRINGE SLOW IVP PRN (23:29)
[2018-05-23 00:42] LABS: ALT (SGPT) 49 U/L (8-55); AST (SGOT) 24 U/L (5-34); Albumin 3.8 g/dL (3.5-5.0); Alkaline Phosphatase 93 U/L (40-150); Anion Gap 16 mmol/L (10-20); BUN (Urea Nitrogen) 12 mg/dL (8.9-20.6); Bilirubin, Total 0.6 mg/dL (0.2-1.2); Calc. Creatinine Clearance 0 mL/min (70-130); Calcium 8.5 mg/dL (7.8-10.44); Carbon Dioxide 22 mmol/L (22-29); Chloride 102 mmol/L (98-107); Estimated GFR-MDRD Greater than 90; Globulin 2.9 g/dL (2.4-3.5); Glucose 152 mg/dL (70-105); Potassium 3.7 mmol/L (3.5-5.1); Protein, Total 6.7 g/dL (6.0-8.3); Sodium 136 mmol/L (136-145)
[2018-05-23 04:45] LABS: #Eosinphils 0.1 thou/uL (0.0-0.7); #Lymphocytes 1.1 thou/uL (1.20-3.40); #Monocytes 0.4 thou/uL (0.11-0.59); #Neutrophils 3.8 thou/uL (1.40-6.50); %Basophils 0.4 % (0.0-1.0); %Eosinophils 2.2 % (0.0-10.0); %Lymphocytes 20.8 % (21.0-51.0); %Monocytes 7.3 % (0.0-10.0); %Neutrophils 69.4 % (42.0-75.0); Hemoglobin 14.1 g/dL (14.0-18.0); Mean Corpuscular HGB CONC 33.7 g/dL (32.0-36.0); Mean Platelet Volume 7.1 fL (7.4-10.4); Platelet Count 265 thou/uL (130-400); Red Blood Cell (RBC) Count 4.54 mill/uL (4.70-6.10); White Blood Cell (WBC) Count 5.4 thou/uL (4.8-10.8)
[2018-05-23] MEDS ORDERED: traMADol HCl 50 MG TAB ONE (04:55)
[2018-05-23 05:09] LABS: ALT (SGPT) 45 U/L (8-55); AST (SGOT) 22 U/L (5-34); Albumin 3.9 g/dL (3.5-5.0); Alkaline Phosphatase 93 U/L (40-150); Anion Gap 13 mmol/L (10-20); BUN (Urea Nitrogen) 12 mg/dL (8.9-20.6); Bilirubin, Total 0.5 mg/dL (0.2-1.2); Calc. Creatinine Clearance 0 mL/min (70-130); Calcium 8.6 mg/dL (7.8-10.44); Carbon Dioxide 24 mmol/L (22-29); Chloride 102 mmol/L (98-107); Estimated GFR-MDRD Greater than 90; Globulin 2.9 g/dL (2.4-3.5); Glucose 130 mg/dL (70-105); Potassium 3.6 mmol/L (3.5-5.1); Protein, Total 6.8 g/dL (6.0-8.3); Sodium 135 mmol/L (136-145)
[2018-05-23] MEDS ORDERED: Piperacillin/Tazobactam 3.375 GM VIAL ONE (06:13)
[2018-05-23] MEDS ORDERED: Ondansetron PF 4 MG/2 ML Vial ONE ×2 (06:15→08:57)
--- NOTE | 2018-05-23 07:56 | HP ---
CHIEF COMPLAINT: Abdominal distention, nausea and vomiting. HISTORY OF PRESENT ILLNESS: This is a 37-year-old male with past medical history of hernia repair, asthma, presenting with abdominal pain, distention, nausea, and vomiting. Per the patient, he started having abdominal distention and tenderness at his abdomen the night prior to this admission. The patient went to [facility], and the patient was examined. A CT scan of the abdomen was done at [facility], and the patient was found to have ileitis. Therefore, the patient was transferred to our hospital for further evaluation and treatment. The patient states that he had his hernia repair in April and he has been feeling very well until last night when he started having this abdominal distention and pain with associated symptoms of episodes of vomiting. The patient states that he had two episodes of vomiting in the morning of admission. The patient is describing his pain as acute and sudden pain, which is 7/10 on the pain scale. The patient also endorses diarrhea. Otherwise, the patient denies any fever, chills, headaches, dizziness, chest pain, palpitations, dysuria, hematuria, hematochezia, and melena. REVIEW OF SYSTEMS: Positive for abdominal pain, distention, diarrhea, vomiting. Otherwise as stated in the HPI. All other systems are reviewed and are negative. FAMILY HISTORY: Reviewed and non-contributory PAST MEDICAL HISTORY: Hernia, asthma. PAST SURGICAL HISTORY: Hernia repair. PSYCHIATRIC HISTORY: No psych history. SOCIAL HISTORY: The patient drinks socially. The patient denies illicit drug use. The patient smokes cigarettes. The patient smokes half a pack per day. The patient lives at home. ALLERGIES: SULFA. CURRENT MEDICATIONS: The patient takes; 1. Glucophage 500 mg p.o. b.i.d. 2. Ultram p.r.n. for pain. 3. Tricor 48 mg p.o. daily. 4. Atorvastatin 20 mg p.o. at bedtime. 5. Albuterol inhaler every 6 hours p.r.n. PHYSICAL EXAMINATION: VITAL SIGNS: The patient's blood pressure is 142/93, pulse of 111, respiratory rate of 20, temperature of 98.5, O2 saturation is 94 on room air. GENERAL: The patient is sitting by his bedside. Does not appear to be in any acute distress. The patient states that his belly is tender. The patient is alert and oriented x3, not in acute distress. HEENT: Normocephalic, atraumatic. Pupils are equally round and reactive to light. Extraocular movements are intact. No scleral icterus. No conjunctival pallor. Mucous membranes are moist. NECK: Trachea is midline. Full range of motion. Supple. RESPIRATORY: Clear to auscultation bilaterally. No wheezing, no rales, no rhonchi appreciated. CARDIAC: Positive S1 and S2. Regular rate and rhythm. No murmurs, no gallops , no rubs appreciated. ABDOMEN: The patient has tenderness diffusely with palpation. There is distention present, the patient has tympany. The patient has midline scar that noted from the umbilicus to the suprapubic region. There is no palpable masses appreciated. There is no peritoneal signs appreciated. EXTREMITIES: The patient has 5/5 upper extremity strength and 5/5 lower extremity strength. No edema noted. The patient has good pulses of the upper and lower extremities bilaterally. NEUROLOGIC: Cranial nerves 2 through 12 grossly intact. No neurologic deficits noted. SKIN: Warm, dry, and intact. Refer to description of the umbilicus to the suprapubic region, where the patient has a scar. PSYCH: Normal affect, alert, oriented x3. ED COURSE: The patient received morphine 8 mg. LABORATORY DATA: WBC is 5.4, hemoglobin 14.1, hematocrit is 41.8, platelet count is 265. Sodium is 136, potassium is 3.7, chloride is 102, carbon dioxide of 22, anion gap of 16, BUN is 12, creatinine is 0.87, glucose is 152, AST 24, ALT 49. ASSESSMENT AND PLAN: This is a 37-year-old male being admitted for: 1. abdominal pain and distention, likely due to ileitis per imaging. The patient was transferred from [place] and per the patient's record, the patient had ileitis that was noted on imaging. At this time, we do not have the imaging with us, the patient brought the CD with him. We were trying to see the radiologist, so that they can be able to transcribe the read, so we can input into our computer. At this point, if we are unable to get the imaging read by our radiologist, we will get KUB to further examine severity of the patient's ileitis. At this point, we have consulted GI. We will follow up with GI regarding any further recommendations. The patient is currently n.p.o. The patient is not vomiting and is not having any active diarrhea at this time. We will put the patient on Zosyn and we will give the patient p.r.n. antiemetics. 2. History of hernia repair. At this time, the patient is stable. We have consulted GI for any further recommendation regarding the patient's active issue of ileitis. We will continue to monitor the patient closely. We will continue IV fluids. 3. History of asthma. Currently, the patient is stable. We will monitor the patient closely. 4. Deep vein thrombosis and gastrointestinal prophylaxis. Job ID: [id number] MTDD
[2018-05-23] MEDS ORDERED: Morphine 4 MG/ML VIAL ONE (08:55)
--- NOTE | 2018-05-23 10:18 | PDOC.PN ---
- Subjective Encounter Start Date: 05/23/18 Encounter Start Time: 10:10 -: old records requested/rev pt has abdominal pain and distention, has diarrhoea, no fever, no vomiting Patient seen and examined. - Objective Resuscitation Status - Order Detail: 05/22/18 23:24 Resuscitation Status Routine Resuscitation Status: FULL: Full Resuscitation MAR Reviewed: Yes Result Diagrams: 05/23/18 03:58 05/23/18 03:58 Additional Labs: Accuchecks 05/23/18 06:34 POC Glucose 135 H Radiology Reviewed by me: Yes Phys Exam - Physical Examination Constitutional: NAD HEENT: PERRLA, moist MMs, sclera anicteric Neck: no JVD, supple Respiratory: no wheezing, no rales, no rhonchi Cardiovascular: RRR, no significant murmur, no rub distended, tender, hypoactive bowl sound Musculoskeletal: no edema, pulses present Neurological: non-focal, normal sensation, moves all 4 limbs Lymphatic: no nodes Psychiatric: normal affect, A&O x 3 Skin: no rash, normal turgor Dx/Plan (1) Abdominal pain Code(s): R10.9 - UNSPECIFIED ABDOMINAL PAIN Status: Acute (2) Abdominal distension Code(s): R14.0 - ABDOMINAL DISTENSION (GASEOUS) Status: Acute (3) Ileitis Code(s): K52.9 - NONINFECTIVE GASTROENTERITIS AND COLITIS, UNSPECIFIED Status : Acute (4) Fatty liver Code(s): K76.0 - FATTY (CHANGE OF) LIVER, NOT ELSEWHERE CLASSIFIED Status: Chronic (5) Hypertriglyceridemia Code(s): E78.1 - PURE HYPERGLYCERIDEMIA Status: Chronic (6) Tobacco abuse Code(s): Z72.0 - TOBACCO USE Status: Chronic (7) Obesity (BMI 30-39.9) Code(s): E66.9 - OBESITY, UNSPECIFIED Status: Acute - Plan cont current plan of care * GI consulted * general surgery consulted * medication reviewed as below * symptomatic treatment * continue empiric antibiotics * stool studies * continue IVF * will control pain with morphin. Review of Systems - Review of Systems Eyes: negative: Pain, Vision Change, Conjunctivae Inflammation, Eyelid Inflammation, Redness, Other ENT: negative: Ear Pain, Ear Discharge, Nose Pain, Nose Discharge, Nose Congestion, Mouth Pain, Mouth Swelling, Throat Pain, Throat Swelling, Other Respiratory: negative: Cough, Dry, Shortness of Breath, Hemoptysis, SOB with Excertion, Pleuritic Pain, Sputum, Wheezing Cardiovascular: negative: chest pain, palpitations, orthopnea, paroxysmal nocturnal dyspnea, edema, light headedness, other Gastrointestinal: Abdominal Pain, Diarrhea. negative: Nausea, Vomiting, Constipation, Melena, Hematochezia, Other Genitourinary: negative: Dysuria, Frequency, Incontinence, Hematuria, Retention , Other Musculoskeletal: negative: Neck Pain, Shoulder Pain, Arm Pain, Back Pain, Hand Pain, Leg Pain, Foot Pain, Other - Medications/Allergies Allergies/Adverse Reactions: Allergies Allergy/AdvReac Type Severity Reaction Status Date / Time Sulfa (Sulfonamide Allergy Verified 04/10/18 16:05 Antibiotics) Medications: Current Medications Acetaminophen (Tylenol) 650 mg PO Q4H PRN PRN Reason: Headache/Fever/Mild Pain (1-3) Acetaminophen (Tylenol) 650 mg UT Q4H PRN PRN Reason: Headache/Fever/Mild Pain (1-3) Albuterol/Ipratropium (Duoneb) 3 ml NEB [id number] PRN PRN Reason: SOB &/or Wheezing Atorvastatin Calcium (Lipitor) 20 mg PO HS [facility] Calcium Carbonate (Tums) 1,000 mg PO Q4H PRN PRN Reason: Heartburn or Indigestion Dextrose/Water (Dextrose 50%) 25 gm SLOW IVP PRN PRN PRN Reason: Hypoglycemia Famotidine (Pepcid) 20 mg SLOW IVP Q12HR [facility] Famotidine (Pepcid) 20 mg PO BID [facility] Fenofibrate (Tricor) 48 mg PO DAILY [facility] Glucagon (Glucagon) 1 mg IM PRN PRN PRN Reason: Hypoglycemia Sodium Chloride (Normal Saline 0.9%) 1,000 mls @ 125 mls/hr IV .Q8H [facility] Dextrose/Water (D5w) 1,000 mls @ 0 mls/hr IV .Q0M PRN PRN Reason: Hypoglycemia Piperacillin Sod/Tazobactam (Sod 3.375 gm/ Sodium Chloride) 100 mls @ 200 mls/ hr IVPB Q6HR [facility] Insulin Human Lispro (Humalog) 0 units SC .MILD SLIDING SCALE PRN PRN Reason: Mild Correctional Scale Insulin Human Lispro (Humalog) 0 units SC .BEDTIME SLIDING SC PRN PRN Reason: Bedtime Correctional Scale Miscellaneous Medication (Pharmacy To Dose) 1 each IVPB PRN PRN PRN Reason: Pharmacy to dose Morphine Sulfate (Morphine) 4 mg SLOW IVP Q4H PRN PRN Reason: Pain Ondansetron HCl (Zofran Odt) 4 mg PO Q6H PRN PRN Reason: Nausea/Vomiting Ondansetron HCl (Zofran) 4 mg IVP Q6H PRN PRN Reason: Nausea/Vomiting Polyethylene Glycol/Electrolytes (Golytely) 4,000 ml PO ONE [facility] Stop: 05/23/18 23:00 Sodium Chloride (Flush - Normal Saline) 10 ml IVF Q12HR PRN PRN Reason: Saline Flush Sodium Chloride (Flush - Normal Saline) 10 ml IVF PRN PRN PRN Reason: Saline Flush Tramadol HCl (Ultram) 50 mg PO QID PRN PRN Reason: Moderate Pain (4-6) Zolpidem Tartrate (Ambien) 5 mg PO HSPRN PRN PRN Reason: Insomnia
--- NOTE | 2018-05-23 12:08 | CON ---
DATE OF CONSULTATION: HISTORY OF PRESENT ILLNESS: The patient is a 37-year-old male, who was in his normal state of health until a few days prior to admission when he developed severe diffuse abdominal pain, some nausea, vomiting, and diarrhea. On further questioning, his symptoms have been going on for quite some time and the patient was seen in March for this and saw Dr. Mcneil during that visit. He subsequently underwent a open ventral hernia repair with mesh and an excision of 8 cm of incarcerated omentum. In March, he had an abdominal ultrasound, which showed fatty liver, some sludge within the gallbladder. I do not see a prior CT scan. PAST MEDICAL HISTORY: Significant for a new-onset diabetes mellitus. ALLERGIES: SULFA. MEDICATIONS: Discharge medications at the end of his last hospitalization include; 1. Metformin 500 mg p.o. b.i.d. 2. TriCor 48 mg p.o. daily. 3. Atorvastatin 20 mg p.o. at bedtime. 4. Albuterol inhaler. He has not been taking his metformin secondary to cost. SOCIAL HISTORY: He drank multiple beers daily up until his recent hospitalization. He did smoke half pack per day. FAMILY HISTORY: Negative for any inflammatory bowel disease. REVIEW OF SYSTEMS: Ten systems were reviewed and were negative except for above. PHYSICAL EXAMINATION: GENERAL: Shows an overweight male, in no acute distress. VITAL SIGNS: Blood pressure 162/110, heart rate 95, respiratory rate 20, and temperature 97.7. HEENT: Unremarkable. NECK: Supple. CHEST: Clear. CARDIOVASCULAR: Regular rate and rhythm. ABDOMEN: Very protuberant, diffusely tender without rebound or guarding. Bowel sounds are present, normoactive. He has a well-healed surgical scar. RECTAL: Deferred. EXTREMITIES: Show some trace bilateral pitting edema. NEUROLOGIC: Nonfocal. LABORATORY DATA: Laboratory shows white blood cell count of 5.4, hemoglobin of 14.1, and hematocrit of 41.8. Chemistries show a normal chemistry panel except for a sodium of 135 and glucose of 130. ASSESSMENT: Ileitis - ischemia versus surgical complication versus Crohn's disease versus Clostridium difficile. RECOMMENDATIONS: 1. Colonoscopy tomorrow. 2. Clear liquids. 3. C difficile stool. 4. Hold on the steroids until the time of colonoscopy. Job ID: [id number]
[2018-05-23] MEDS: Morphine 4 MG/ML VIAL SLOW IVP PRN ×3 (13:03→21:10)
[2018-05-23] MEDS: Sodium Chloride 0.9% 1,000 ML IV SCH ×4 (13:28→20:01)
[2018-05-23] MEDS: Piperacillin/Tazobactam 3.375 GM in Sodium Chloride 0.9% 100 ML IVPB SCH ×3 (13:28→17:41)
[2018-05-23 14:06] VITALS: BMI 41.2
[2018-05-23] MEDS: Fenofibrate 48 MG TAB PO SCH (14:22)
[2018-05-23] MEDS: Famotidine/PF 20 mg/2ml Vial SLOW IVP SCH ×2 (14:22→20:02)
[2018-05-23] MEDS: Famotidine 20 MG TAB PO SCH ×2 (14:22→19:22)
[2018-05-23] MEDS ORDERED: GoLYTELY 4,000 ml Bottle PO SCH (18:00)
[2018-05-23] MEDS: Atorvastatin Calcium 20 MG TAB PO SCH (19:22)
[2018-05-23] MEDS: Ondansetron PF 4 MG/2 ML Vial IVP PRN (21:10)
--- NOTE | 2018-05-23 22:48 | CON ---
DATE OF CONSULTATION: CHIEF COMPLAINT: Abdominal pain. HISTORY OF PRESENT ILLNESS: A 37-year-old male, 5 weeks status post urgent ventral hernia repair for an strangulated umbilical hernia. He had incarcerated omentum within it and underwent a partial omentectomy. Postoperatively, he did well until 2 days ago when he developed central sharp pain, nausea, vomiting, and diarrhea which he describes as black. He had a low-grade temp at 100.5. PAST MEDICAL HISTORY: Significant for hyperlipidemia, asthma, and obesity. MEDICATIONS: 1. Glucophage. 2. Ultram. 3. Atorvastatin. 4. Albuterol. PAST SURGICAL HISTORY: just the hernia surgeries. ALLERGIES: SULFA. SOCIAL HISTORY: He drinks alcohol regularly. He smokes 1/2 pack per day. PHYSICAL EXAMINATION: VITAL SIGNS: Temperature 98, pulse 98, blood pressure 153/98. GENERAL: Obese male, lying still, awake, alert, and oriented. HEENT: Unremarkable. LUNGS: Clear. HEART: Regular rate and rhythm. ABDOMEN: Very protuberant, tympanic, and distended. His incision has healed well. There is no evidence of recurrent hernia. His actual incision is not tender at all. He has some tenderness above that area, probably about half way to the xiphoid process and on both right and left sides. LABORATORY DATA: White count is 5.4, H and H of 14 and 41, and platelet count 265. Electrolytes are fine. LFTs are fine. CT showed some inflammation of the ileum. ASSESSMENT: I do not see evidence of surgical complication at this time. PLAN: Proceed with colonoscopy. Stool studies. Job ID: [id number]
[2018-05-24] MEDS: Piperacillin/Tazobactam 3.375 GM in Sodium Chloride 0.9% 100 ML IVPB SCH ×2 (00:10→04:37)
[2018-05-24] MEDS: Ondansetron PF 4 MG/2 ML Vial IVP PRN ×2 (03:20→15:17)
[2018-05-24] MEDS: Morphine 4 MG/ML VIAL SLOW IVP PRN ×4 (03:20→18:51)
[2018-05-24] MEDS: Sodium Chloride 0.9% 1,000 ML IV SCH ×3 (04:38→20:20)
[2018-05-24] MEDS: Famotidine/PF 20 mg/2ml Vial SLOW IVP SCH ×2 (07:33→20:17)
[2018-05-24] MEDS: Famotidine 20 MG TAB PO SCH ×2 (07:34→20:17)
[2018-05-24] MEDS: Fenofibrate 48 MG TAB PO SCH (07:34)
--- NOTE | 2018-05-24 10:43 | PDOC.PN ---
- Subjective Encounter Start Date: 05/24/18 Encounter Start Time: 08:20 Patient seen and examined. No new complaints. No overnight events his abdominal pain is improving - Objective Resuscitation Status - Order Detail: 05/22/18 23:24 Resuscitation Status Routine Resuscitation Status: FULL: Full Resuscitation MAR Reviewed: Yes Vital Signs & Weight: Vital Signs (12 hours) Temp Pulse Resp BP BP Pulse Ox 05/24/18 07:39 97.7 F 93 18 120/92 H 92 L 05/24/18 03:35 97.4 F L 96 16 135/89 94 L Weight Weight 248 lb I&O: 05/23/18 05/24/18 05/25/18 06:59 06:59 06:59 Intake Total 1305 Balance 1305 Result Diagrams: 05/23/18 03:58 05/23/18 03:58 Additional Labs: Accuchecks 05/24/18 05/23/18 05/23/18 03:32 19:53 16:33 POC Glucose 133 H 148 H 125 H 05/23/18 12:28 POC Glucose 142 H Phys Exam - Physical Examination Constitutional: NAD HEENT: PERRLA, moist MMs, sclera anicteric Neck: no JVD, supple Respiratory: no wheezing, no rales, no rhonchi Cardiovascular: RRR, no significant murmur, no rub Gastrointestinal: soft, non-tender, no distention, positive bowel sounds obesity+ Musculoskeletal: no edema, pulses present Neurological: non-focal, normal sensation, moves all 4 limbs Lymphatic: no nodes Psychiatric: normal affect, A&O x 3 Skin: no rash, normal turgor Dx/Plan (1) Abdominal pain Code(s): R10.9 - UNSPECIFIED ABDOMINAL PAIN Status: Acute (2) Abdominal distension Code(s): R14.0 - ABDOMINAL DISTENSION (GASEOUS) Status: Acute (3) Ileitis Code(s): K52.9 - NONINFECTIVE GASTROENTERITIS AND COLITIS, UNSPECIFIED Status : Acute (4) Fatty liver Code(s): K76.0 - FATTY (CHANGE OF) LIVER, NOT ELSEWHERE CLASSIFIED Status: Chronic (5) Hypertriglyceridemia Code(s): E78.1 - PURE HYPERGLYCERIDEMIA Status: Chronic (6) Tobacco abuse Code(s): Z72.0 - TOBACCO USE Status: Chronic (7) Morbid obesity with BMI of 40.0-44.9, adult Code(s): E66.01 - MORBID (SEVERE) OBESITY DUE TO EXCESS CALORIES; Z68.41 - BODY MASS INDEX (BMI) 40.0-44.9, ADULT Status: Chronic (8) H/O extrinsic asthma Code(s): Z87.09 - PERSONAL HISTORY OF OTHER DISEASES OF THE RESPIRATORY SYSTEM Status: Chronic - Plan cont current plan of care * ZAINAB Sanchez * today colonoscopy * GI recommendation appreciated * medication reviewed as below * symptomatic treatment * pain control * advance diet as tolerated. * stool for infection negative * started on meselamine and prednisone * discussed with GI Review of Systems - Review of Systems ENT: negative: Ear Pain, Ear Discharge, Nose Pain, Nose Discharge, Nose Congestion, Mouth Pain, Mouth Swelling, Throat Pain, Throat Swelling, Other Respiratory: negative: Cough, Dry, Shortness of Breath, Hemoptysis, SOB with Excertion, Pleuritic Pain, Sputum, Wheezing Cardiovascular: negative: chest pain, palpitations, orthopnea, paroxysmal nocturnal dyspnea, edema, light headedness, other Gastrointestinal: Abdominal Pain. negative: Nausea, Vomiting, Diarrhea, Constipation, Melena, Hematochezia, Other Genitourinary: negative: Dysuria, Frequency, Incontinence, Hematuria, Retention , Other Musculoskeletal: negative: Neck Pain, Shoulder Pain, Arm Pain, Back Pain, Hand Pain, Leg Pain, Foot Pain, Other Skin: negative: Rash, Lesions, Yossi, Bruising, Other - Medications/Allergies Allergies/Adverse Reactions: Allergies Allergy/AdvReac Type Severity Reaction Status Date / Time Sulfa (Sulfonamide Allergy Verified 04/10/18 16:05 Antibiotics) Medications: Current Medications Acetaminophen (Tylenol) 650 mg PO Q4H PRN PRN Reason: Headache/Fever/Mild Pain (1-3) Last Admin: 05/24/18 06:20 Dose: 650 mg Acetaminophen (Tylenol) 650 mg [place] Q4H PRN PRN Reason: Headache/Fever/Mild Pain (1-3) Albuterol/Ipratropium (Duoneb) 3 ml NEB [id number] PRN PRN Reason: SOB &/or Wheezing Atorvastatin Calcium (Lipitor) 20 mg PO HS [facility] Last Admin: 05/23/18 19:22 Dose: Not Given Calcium Carbonate (Tums) 1,000 mg PO Q4H PRN PRN Reason: Heartburn or Indigestion Dextrose/Water (Dextrose 50%) 25 gm SLOW IVP PRN PRN PRN Reason: Hypoglycemia Famotidine (Pepcid) 20 mg SLOW IVP Q12HR [facility] Last Admin: 05/24/18 07:33 Dose: 20 mg Famotidine (Pepcid) 20 mg PO BID [facility] Last Admin: 05/24/18 07:34 Dose: Not Given Fenofibrate (Tricor) 48 mg PO DAILY [facility] Last Admin: 05/24/18 07:34 Dose: 48 mg Glucagon (Glucagon) 1 mg IM PRN PRN PRN Reason: Hypoglycemia Sodium Chloride (Normal Saline 0.9%) 1,000 mls @ 125 mls/hr IV .Q8H [facility] Last Admin: 05/24/18 04:38 Dose: 1,000 mls Dextrose/Water (D5w) 1,000 mls @ 0 mls/hr IV .Q0M PRN PRN Reason: Hypoglycemia Insulin Human Lispro (Humalog) 0 units SC .MILD SLIDING SCALE PRN PRN Reason: Mild Correctional Scale Insulin Human Lispro (Humalog) 0 units SC .BEDTIME SLIDING SC PRN PRN Reason: Bedtime Correctional Scale Mesalamine (Pentasa) 1,000 mg PO QID [facility] Miscellaneous Medication (Pharmacy To Dose) 1 each IVPB PRN PRN PRN Reason: Pharmacy to dose Morphine Sulfate (Morphine) 4 mg SLOW IVP Q4H PRN PRN Reason: Pain Last Admin: 05/24/18 03:20 Dose: 4 mg Ondansetron HCl (Zofran Odt) 4 mg PO Q6H PRN PRN Reason: Nausea/Vomiting Ondansetron HCl (Zofran) 4 mg IVP Q6H PRN PRN Reason: Nausea/Vomiting Last Admin: 05/24/18 03:20 Dose: 4 mg Prednisone (Prednisone) 40 mg PO QAM-WM [facility] Sodium Chloride (Flush - Normal Saline) 10 ml IVF Q12HR PRN PRN Reason: Saline Flush Sodium Chloride (Flush - Normal Saline) 10 ml IVF PRN PRN PRN Reason: Saline Flush Tramadol HCl (Ultram) 50 mg PO QID PRN PRN Reason: Moderate Pain (4-6) Zolpidem Tartrate (Ambien) 5 mg PO HSPRN PRN PRN Reason: Insomnia
[2018-05-24] MEDS ORDERED: PROPOFOL 200 MG/20 ML VIAL ONE (10:49)
[2018-05-24] MEDS ORDERED: Promethazine HCl 25 MG/ML VIAL SLOW IVP PRN (18:39)
[2018-05-24] MEDS: Atorvastatin Calcium 20 MG TAB PO SCH (20:18)
[2018-05-25] MEDS: Morphine 4 MG/ML VIAL SLOW IVP PRN ×4 (00:22→08:07)
[2018-05-25] MEDS: Ondansetron PF 4 MG/2 ML Vial IVP PRN (02:45)
[2018-05-25] MEDS ORDERED: predniSONE 20 MG TAB PO SCH (08:00)
[2018-05-25] MEDS: Famotidine 20 MG TAB PO SCH ×2 (08:12→20:26)
[2018-05-25] MEDS: Famotidine/PF 20 mg/2ml Vial SLOW IVP SCH ×2 (08:12→20:24)
[2018-05-25] MEDS: Sodium Chloride 0.9% 1,000 ML IV SCH ×3 (08:12→21:23)
[2018-05-25] MEDS: Fenofibrate 48 MG TAB PO SCH (08:13)
[2018-05-25] MEDS: traMADol HCl 50 MG TAB PO PRN ×2 (10:57→17:45)
--- NOTE | 2018-05-25 11:03 | PRG ---
DATE OF SERVICE: 05/25/2018 SUBJECTIVE: The patient is complaining of abdominal pain, although he was sleeping when I entered the room. He reports he is eating a fair amount, he is having some diarrhea. OBJECTIVE: VITAL SIGNS: Temperature is 97.6, pulse 86, respiratory rate 18, blood pressure 152/99. CHEST: Clear. CARDIOVASCULAR: Regular rate and rhythm. ABDOMEN: Very obese. Diffusely tender. No rebound. LABORATORY DATA: Laboratory shows glucose of 147. ASSESSMENT: 1. Ileitis. 2. Obesity. RECOMMENDATIONS: 1. Discontinue morphine. 2. Begin p.o. tramadol. 3. Switch to IV Solu-Medrol. Job ID: [id number]
--- NOTE | 2018-05-25 11:07 | PDOC.PN ---
- Subjective Encounter Start Date: 05/25/18 Encounter Start Time: 08:20 last night pt has vomiting, he still has abdominal pain and requiring IV pain meds, has diarrhoea - Objective Resuscitation Status - Order Detail: 05/22/18 23:24 Resuscitation Status Routine Resuscitation Status: FULL: Full Resuscitation MAR Reviewed: Yes Vital Signs & Weight: Vital Signs (12 hours) Temp Pulse Resp BP Pulse Ox 05/25/18 07:40 97.6 F 86 18 152/99 H 93 L Weight Admit Weight 248 lb Weight 248 lb I&O: 05/24/18 05/25/18 05/26/18 06:59 06:59 06:59 Intake Total 1305 1970 Balance 1305 1970 Result Diagrams: 05/23/18 03:58 05/23/18 03:58 Additional Labs: Accuchecks 05/25/18 05/24/18 05/24/18 05:06 19:59 16:17 POC Glucose 147 H 143 H 107 05/24/18 11:30 POC Glucose 135 H Phys Exam - Physical Examination Constitutional: NAD HEENT: PERRLA, moist MMs, sclera anicteric Neck: no JVD, supple Respiratory: no wheezing, no rales, no rhonchi Cardiovascular: RRR, no significant murmur, no rub Gastrointestinal: soft, no distention, positive bowel sounds obesity+, RLQ discomfort noted Musculoskeletal: no edema, pulses present Neurological: non-focal, normal sensation, moves all 4 limbs Lymphatic: no nodes Psychiatric: normal affect, A&O x 3 Skin: no rash, normal turgor Dx/Plan (1) Abdominal pain Code(s): R10.9 - UNSPECIFIED ABDOMINAL PAIN Status: Acute (2) Abdominal distension Code(s): R14.0 - ABDOMINAL DISTENSION (GASEOUS) Status: Acute (3) Ileitis Code(s): K52.9 - NONINFECTIVE GASTROENTERITIS AND COLITIS, UNSPECIFIED Status : Acute (4) Fatty liver Code(s): K76.0 - FATTY (CHANGE OF) LIVER, NOT ELSEWHERE CLASSIFIED Status: Chronic (5) Hypertriglyceridemia Code(s): E78.1 - PURE HYPERGLYCERIDEMIA Status: Chronic (6) Tobacco abuse Code(s): Z72.0 - TOBACCO USE Status: Chronic (7) Morbid obesity with BMI of 40.0-44.9, adult Code(s): E66.01 - MORBID (SEVERE) OBESITY DUE TO EXCESS CALORIES; Z68.41 - BODY MASS INDEX (BMI) 40.0-44.9, ADULT Status: Chronic (8) H/O extrinsic asthma Code(s): Z87.09 - PERSONAL HISTORY OF OTHER DISEASES OF THE RESPIRATORY SYSTEM Status: Chronic - Plan cont current plan of care * continue prednisone and meselamine * continue narcotics for pain control * once pt's pain controlled with oral meds, will consider discharge * medication reviewed as below * symptomatic treatment. * GI following * follow on pathology report Review of Systems - Review of Systems Constitutional: negative: fever, chills, sweats, weakness, malaise, other Eyes: negative: Pain, Vision Change, Conjunctivae Inflammation, Eyelid Inflammation, Redness, Other ENT: negative: Ear Pain, Ear Discharge, Nose Pain, Nose Discharge, Nose Congestion, Mouth Pain, Mouth Swelling, Throat Pain, Throat Swelling, Other Respiratory: negative: Cough, Dry, Shortness of Breath, Hemoptysis, SOB with Excertion, Pleuritic Pain, Sputum, Wheezing Cardiovascular: negative: chest pain, palpitations, orthopnea, paroxysmal nocturnal dyspnea, edema, light headedness, other Gastrointestinal: Nausea, Vomiting, Abdominal Pain, Diarrhea. negative: Constipation, Melena, Hematochezia, Other Genitourinary: negative: Dysuria, Frequency, Incontinence, Hematuria, Retention , Other Musculoskeletal: negative: Neck Pain, Shoulder Pain, Arm Pain, Back Pain, Hand Pain, Leg Pain, Foot Pain, Other Skin: negative: Rash, Lesions, Yossi, Bruising, Other - Medications/Allergies Allergies/Adverse Reactions: Allergies Allergy/AdvReac Type Severity Reaction Status Date / Time Sulfa (Sulfonamide Allergy Verified 04/10/18 16:05 Antibiotics) Medications: Current Medications Acetaminophen (Tylenol) 650 mg PO Q4H PRN PRN Reason: Headache/Fever/Mild Pain (1-3) Last Admin: 05/24/18 06:20 Dose: 650 mg Acetaminophen (Tylenol) 650 mg [place] Q4H PRN PRN Reason: Headache/Fever/Mild Pain (1-3) Albuterol/Ipratropium (Duoneb) 3 ml NEB [id number] PRN PRN Reason: SOB &/or Wheezing Atorvastatin Calcium (Lipitor) 20 mg PO HS [facility] Last Admin: 05/24/18 20:18 Dose: 20 mg Calcium Carbonate (Tums) 1,000 mg PO Q4H PRN PRN Reason: Heartburn or Indigestion Dextrose/Water (Dextrose 50%) 25 gm SLOW IVP PRN PRN PRN Reason: Hypoglycemia Famotidine (Pepcid) 20 mg SLOW IVP Q12HR COUNTS INCLUDE 234 BEDS AT THE [facility] Last Admin: 05/25/18 08:12 Dose: Not Given Famotidine (Pepcid) 20 mg PO BID COUNTS INCLUDE 234 BEDS AT THE [facility] Last Admin: 05/25/18 08:12 Dose: 20 mg Fenofibrate (Tricor) 48 mg PO DAILY COUNTS INCLUDE 234 BEDS AT THE [facility] Last Admin: 05/25/18 08:13 Dose: 48 mg Glucagon (Glucagon) 1 mg IM PRN PRN PRN Reason: Hypoglycemia Sodium Chloride (Normal Saline 0.9%) 1,000 mls @ 125 mls/hr IV .Q8H COUNTS INCLUDE 234 BEDS AT THE [facility] Last Admin: 05/25/18 08:12 Dose: Not Given Dextrose/Water (D5w) 1,000 mls @ 0 mls/hr IV .Q0M PRN PRN Reason: Hypoglycemia Insulin Human Lispro (Humalog) 0 units SC .MILD SLIDING SCALE PRN PRN Reason: Mild Correctional Scale Insulin Human Lispro (Humalog) 0 units SC .BEDTIME SLIDING SC PRN PRN Reason: Bedtime Correctional Scale Mesalamine (Pentasa) 1,000 mg PO QID COUNTS INCLUDE 234 BEDS AT THE [facility] Last Admin: 05/25/18 08:16 Dose: 1,000 mg Methylprednisolone Sodium Succinate (Solu-Medrol) 20 mg IVP Q8HR COUNTS INCLUDE 234 BEDS AT THE [facility] Miscellaneous Medication (Pharmacy To Dose) 1 each IVPB PRN PRN PRN Reason: Pharmacy to dose Ondansetron HCl (Zofran Odt) 4 mg PO Q6H PRN PRN Reason: Nausea/Vomiting Ondansetron HCl (Zofran) 4 mg IVP Q6H PRN PRN Reason: Nausea/Vomiting Last Admin: 05/25/18 02:45 Dose: 4 mg Promethazine HCl (Phenergan) 12.5 mg SLOW IVP Q6H PRN PRN Reason: Nausea/Vomiting Last Admin: 05/24/18 18:52 Dose: 12.5 mg Sodium Chloride (Flush - Normal Saline) 10 ml IVF Q12HR PRN PRN Reason: Saline Flush Sodium Chloride (Flush - Normal Saline) 10 ml IVF PRN PRN PRN Reason: Saline Flush Tramadol HCl (Ultram) 50 mg PO Q6H PRN PRN Reason: Moderate Pain (4-6) Last Admin: 05/25/18 10:57 Dose: 50 mg Zolpidem Tartrate (Ambien) 5 mg PO HSPRN PRN PRN Reason: Insomnia
[2018-05-25] MEDS: Atorvastatin Calcium 20 MG TAB PO SCH (20:26)
[2018-05-26] MEDS: Sodium Chloride 0.9% 1,000 ML IV SCH ×2 (06:13→13:38)
[2018-05-26 08:19] VITALS: BP 161/103; TEMP 98
[2018-05-26] MEDS: Famotidine 20 MG TAB PO SCH (08:37)
[2018-05-26] MEDS: Famotidine/PF 20 mg/2ml Vial SLOW IVP SCH (08:37)
[2018-05-26] MEDS: Fenofibrate 48 MG TAB PO SCH (08:38)
--- NOTE | 2018-05-26 09:44 | DIS ---
DATE OF ADMISSION: 05/22/2018 DATE OF DISCHARGE: 05/26/2018 PRIMARY CARE PHYSICIAN: [facility] Call Admission. DISCHARGE DISPOSITION: Home. PRIMARY DISCHARGE DIAGNOSIS: 1. Ileitis. 2. Abdominal pain and mild abdominal distention due to ileitis. SECONDARY DISCHARGE DIAGNOSES: 1. Tobacco abuse disorder. 2. Hypertriglyceridemia. 3. History of asthma. 4. Fatty liver. 5. Morbid obesity with BMI of 41. PRIMARY PROCEDURE/OPERATION: Colonoscopy was performed by Dr. Junior and found with ileitis. Biopsy was obtained, result is pending. The patient also had colon polyp. Biopsy was obtained. RADIOLOGICAL INVESTIGATION: The patient had CT abdomen and pelvis at [facility]. SIGNIFICANT LABORATORY DATA: WBC 5.4, hemoglobin 14.1, and platelet 265. Sodium 135, potassium 3.6, BUN 12, creatinine 0.85, and calcium 8.6. LFT normal. Stool for infection workup negative. DISCHARGE MEDICATIONS: 1. Proventil HFA 2 puffs q.6 hourly p.r.n. 2. Lipitor 20 mg p.o. at bedtime. 3. Pepcid 20 mg p.o. b.i.d. 4. TriCor 48 mg p.o. daily. 5. Metformin 500 mg p.o. b.i.d. 6. Prednisone 40 mg p.o. daily until the patient see drier tender. 7. Mesalamine 1000 mg p.o. q.i.d. CONTRAINDICATION: None. CODE STATUS: Full code. INPATIENT [employer] PIPE SUPERVISOR: Dr. Junior was following while in hospital, who did colonoscopy. TEST RESULT PENDING ON DISCHARGE: Biopsy result from ileum and colon biopsy. ALLERGIES: SULFA DRUGS. DISCHARGE PLAN: Posthospital, the patient is instructed to follow up with Dr. Junior in 1 or 2 week. The patient is also instructed to follow up with primary care physician. HOSPITAL COURSE: A 37-year-old male, who presented to the hospital with abdominal pain, abdominal distention, and diarrhea. He initially evaluated at the other emergency room, where he had CT abdomen and pelvis, which showed findings suggestive by ileitis. During this admission, the patient was evaluated by Dr. Warren and he was not thinking that the patient has any acute surgical abdomen. Dr. Junior was also consulted and he did colonoscopy and colonoscopy showed finding suggestive of ileitis. Biopsy was obtained. Dr. Junior was suspecting maybe Crohn disease. We did stool for infection workup and ruled out infection. We started empirically while in hospital with steroid and Pentasa with the patient has significant improvement by the time of discharge. The patient will continue prednisone as prescribed up until he see drier tender and then taper will be initiated. The patient will continue Pentasa as prescribed. He will follow up with Dr. Junior for further management and follow up on biopsy results. The patient is doing much better. His diarrhea and abdominal pain are resolved. He is tolerating p.o. well and ambulatory. The patient wants to go home today. I have seen and examined the patient at the bedside today. PHYSICAL EXAMINATION: VITAL SIGNS: Currently, temperature 98.0, pulse 83, respiratory rate 18, saturation 96% on room air, and blood pressure 161/103. Weight 248 pounds. GENERAL: The patient is currently alert, awake, no obvious acute distress. HEENT: Head; normocephalic, atraumatic. Eyes; pupils are round and reactive to light. Extraocular muscle intact. ENT; oropharynx within normal limits. Moist mucous membranes. No oral lesion. No pharyngeal erythema. No exudate. NECK: Supple. No JVD. LUNGS: Clear without any rhonchi. CARDIAC: S1 and S2 regular without any murmur. ABDOMEN: Soft and benign. Obesity present. EXTREMITIES: No edema. NEUROLOGIC: Nonfocal examination. All new medication prescription given to the patient. Job ID: [id number]
[2018-05-26] MEDS: traMADol HCl 50 MG TAB PO PRN (11:59)
--- NOTE | 2018-05-27 11:43 | OP ---
DATE OF PROCEDURE: 05/23/2018 PREOPERATIVE DIAGNOSES: Chronic diarrhea and abnormal CT of the ileum. DESCRIPTION OF PROCEDURE: After informed consent was obtained, the patient was placed in a left lateral decubitus position. Anesthesia was administered per the Anesthesia Department. Forward viewing endoscope was inserted into the rectum after perianal inspection of rectal exam was normal, this passed the cecum with ease. The cecum, ileocecal valve, and appendiceal orifice were normal. The prep was good but not excellent. The endoscope was then inserted into the ileum and 10 to 20 cm of ileum were visualized. The ileum was diffusely erythematous and some edematous and there were some areas of erosion. Biopsies were taken for several sites in the ileum. The cecum, ascending, transverse, descending, sigmoid, and rectum were normal. No inflammation was noted. In the descending, sigmoid, and rectum, multiple polyps were removed all with cold snare polypectomy. All these polyps were small and sessile. ASSESSMENT: 1. Ileitis-possible Crohn disease. 2. Five small left-sided colon polyps-status post cold snare polypectomy. 3. Otherwise, normal ileocolonoscopy. RECOMMENDATIONS: 1. Await histopathology. 2. Begin steroids with quick taper. 3. Start Pentasa. Job ID: [id number]
== END 2018-05-26 13:41 | disposition home or self-care (01) | DRG 392 ==
LOC: ERS 22:23 → ERHOLD 22:33 → T4-A 23:01
PROVIDERS: ADMIT Internal Medicine; ATTEND Internal Medicine
PROC: 0DBB8ZX Excision of Ileum, Via Natural or Artificial Opening Endoscopic, Diagnostic (ICD-10-PCS; principal; 2018-05-23)
PROC: 0DBM8ZX Excision of Descending Colon, Via Natural or Artificial Opening Endoscopic, Diagnostic (ICD-10-PCS; 2018-05-23)
PROC: 0DBN8ZX Excision of Sigmoid Colon, Via Natural or Artificial Opening Endoscopic, Diagnostic (ICD-10-PCS; 2018-05-23)
PROC: 0DBP8ZX Excision of Rectum, Via Natural or Artificial Opening Endoscopic, Diagnostic (ICD-10-PCS; 2018-05-23)
DX: K52.9 Noninfective gastroenteritis and colitis, unspecified (principal); Z68.41 Body mass index [BMI] 40.0-44.9, adult; J45.909 Unspecified asthma, uncomplicated; F17.210 Nicotine dependence, cigarettes, uncomplicated; E66.01 Morbid (severe) obesity due to excess calories; E11.9 Type 2 diabetes mellitus without complications; E78.1 Pure hyperglyceridemia; K76.0 Fatty (change of) liver, not elsewhere classified; K63.5 Polyp of colon; K62.1 Rectal polyp; Z88.2 Allergy status to sulfonamides; Z79.899 Other long term (current) drug therapy; Z79.84 Long term (current) use of oral hypoglycemic drugs
CPT/HCPCS: 36415; 36416; 80053; 85025; 87045; 87046; 87324; 87449; 87899; 88305; 96374; 96375; J2270; J2405; J2543; J2550; J2704; J2920; J7050; J7506; S0028